=== PATIENT | male | born 1990 | race African-American/Black ===

== ENCOUNTER 2019-10-21 20:33 | Emergency (ER) | payer BC, OTHER ==
--- NOTE | 2019-10-21 20:46 | ER Document Report ---
ED Medical Screen (RME) - General Chief Complaint: Chest Pain Stated Complaint: LEFT ARM PAIN/CHEST PAIN Time Seen by Provider: 10/21/19 20:41 TRAVEL OUTSIDE OF THE [place] IN LAST 30 DAYS: No - HPI Notes: 10/21/19 20:45 Patient is a 29-year-old male with no significant past medical history who presents with nonspecific symptoms, but complaining of left lateral chest pain that he cannot describe how it feels. Patient states that he has some tingling sensation to his left arm as well. He did start having a cough today. Denies drug allergies. No fever. No history of CAD, PE, DVT. I have treated and performed a rapid initial assessment of this patient. A comprehensive ED assessment and evaluation of the patient, analysis of test results and completion of medical decision making process will be conducted by additional ED providers. PHYSICAL EXAMINATION: GENERAL: Well-appearing, well-nourished and in no acute distress. A&Ox4. Answers questions appropriately. LUNGS: Breath sounds clear to auscultation bilaterally and equal. No wheezes rales or rhonchi. HEART: Regular rate and rhythm without murmurs, rubs, gallops. Extremities: No cyanosis, clubbing, or edema b/l. Santy negative bilaterally. No lower extremity asymmetry. NEUROLOGICAL: Normal speech, normal gait. PSYCH: Normal mood, normal affect. Past Medical History - Immunizations Hx Diphtheria, Pertussis, Tetanus Vaccination: Yes
--- NOTE | 2019-10-21 21:20 | EKG REPORT ---
SEVERITY:- NORMAL ECG - SINUS RHYTHM : Confirmed by: Jairo Guerrero MD 21-Oct-2019 21:19:09
--- NOTE | 2019-10-21 21:24 | RADIOLOGY REPORT (SQ) ---
EXAM DESCRIPTION: XR CHEST 2 VIEWS COMPLETED DATE/TME: 10/21/2019 20:44 CLINICAL HISTORY: 29 years, Male, CP COMPARISON: None. NUMBER OF VIEWS: Two TECHNIQUE: Frontal and lateral radiograph are obtained LIMITATIONS: None. FINDINGS: Cardiac and mediastinal contours are normal in appearance. Lungs are clear. No pleural effusion or pneumothorax. IMPRESSION: No acute disease. copyright 2010 [employer]- All Rights Reserved
[2019-10-21 21:25] LABS: ABSOLUTE EOSINOPHILS # (AUTO) 0.2 10^3/uL (0.0-0.6); ABSOLUTE LYMPHOCYTES (AUTO) 2.2 10^3/uL (0.5-4.7); ABSOLUTE MONOCYTES (AUTO) 0.7 10^3/uL (0.1-1.4); ABSOLUTE NEUT (AUTO) 3.2 10^3/uL (1.7-8.2); BASOPHILS % (AUTO) 0.4 % (0-2); EOSINOPHILS % (AUTO) 3.3 % (0-6); HEMATOCRIT 46.1 % (37.9-51.0); HEMOGLOBIN 15.4 g/dL (13.5-17.0); LYMPHOCYTES % (AUTO) 35.3 % (13-45); MEAN CORPUSCULAR HEMOGLOBIN 27.2 pg (27.0-33.4); MEAN CORPUSCULAR HGB CONC 33.4 g/dL (32.0-36.0); MEAN CORPUSCULAR VOLUME 82 fl (80-97); MONOCYTES % (AUTO) 10.7 % (3-13); PLATELET COUNT 245 10^3/uL (150-450); RED BLOOD COUNT 5.66 10^6/uL (4.35-5.55); RED CELL DISTRIBUTION WIDTH 12.7 % (11.5-14.0); SEGMENTED NEUTROPHILS % (AUTO) 50.3 % (42-78); TOTAL CELLS COUNTED % (AUTO) 100 %; WHITE BLOOD COUNT 6.3 10^3/uL (4.0-10.5)
[2019-10-21 21:52] LABS: ALBUMIN 4.5 g/dL (3.5-5.0); ALKALINE PHOSPHATASE 57 U/L (38-126); ANION GAP 11 (5-19); ASPARTATE AMINO TRANSFERASE 25 U/L (17-59); BILIRUBIN,DIRECT 0.1 mg/dL (0.0-0.4); BILIRUBIN,TOTAL 1.4 mg/dL (0.2-1.3); BLOOD UREA NITROGEN 13 mg/dL (7-20); CALCIUM 9.8 mg/dL (8.4-10.2); CARBON DIOXIDE 28 mmol/L (22-30); CHLORIDE 102 mmol/L (98-107); GLUCOSE 122 mg/dL (75-110); TOTAL PROTEIN 7.8 g/dL (6.3-8.2)
[2019-10-22] MEDS ORDERED: ASPIRIN 81 MG TABLET, CHEWABLE PO ONE (02:37)
--- NOTE | 2019-10-22 02:39 | ER Document Report ---
ED Respiratory Problem - General Chief Complaint: Rib Pain Stated Complaint: LEFT ARM PAIN/CHEST PAIN Time Seen by Provider: 10/21/19 20:41 Primary Care Provider: [facility] [Provider Group] - Follow up as needed [facility] [Provider Group] - Follow up as needed [facility] [Provider Group] - Follow up as needed [facility] [Provider Group] - Follow up as needed Mode of Arrival: Ambulatory Information source: Patient Notes: 29-year-old male presented to ED for complaint nonspecific left lateral chest pain that started before Tequila and then got better and had some "tenseness to the left side of her chest with some tenseness to the left arm tonight. He states he has had some numbness and tingling in his left arm but he does work at housekeeping. He states he did have a mild cough yesterday no cardiac history no pulmonary history no PEs DVTs no surgeries and no past medical history. He is a former smoker but has not smoked in a long time. Does not drink alcohol or use any drugs. He has no risk factors for cardiac event. TRAVEL OUTSIDE OF THE [place] IN LAST 30 DAYS: No - HPI Patient complains to provider of: Chest pain Onset: Other - Intermittent since before Tequila again today Duration: Gone now Quality of pain: No pain - Tenseness Severity: Mild Pain Level: 2 Context: denies: Hx asthma, Hx CHF, Hx COPD, Smoker Chest pain/discomfort: Left Cough: Nonproductive Sputum amount: None Associated symptoms: Chest pain/discomfort, Cough Similar symptoms previously: Yes Recently seen / treated by doctor: No - Related Data Allergies/Adverse Reactions: Penicillins Allergy (Verified 10/21/19 20:50) Past Medical History - General Information source: Patient - Social History Smoking Status: Former Smoker Chew tobacco use (# tins/day): No Frequency of alcohol use: None Drug Abuse: None Lives with: Family Family History: Reviewed & Not Pertinent Patient has suicidal ideation: No Patient has homicidal ideation: No - Past Medical History Cardiac Medical History: Reports: None Pulmonary Medical History: Reports: None EENT Medical History: Reports: None Neurological Medical History: Reports: None Endocrine Medical History: Reports: None Renal/ Medical History: Reports: None Malignancy Medical History: Reports None GI Medical History: Reports: None Musculoskeletal Medical History: Reports None Skin Medical History: Reports None Psychiatric Medical History: Reports: None Traumatic Medical History: Reports: None Infectious Medical History: Reports: None Surgical Hx: Negative Past Surgical History: Reports: None - Immunizations Hx Diphtheria, Pertussis, Tetanus Vaccination: Yes Review of Systems - Review of Systems Constitutional: No symptoms reported EENT: No symptoms reported Cardiovascular: Chest pain - "Tense feeling "is unable to describe Respiratory: Cough Gastrointestinal: No symptoms reported Genitourinary: No symptoms reported Male Genitourinary: No symptoms reported Musculoskeletal: No symptoms reported Skin: No symptoms reported Hematologic/Lymphatic: No symptoms reported Neurological/Psychological: No symptoms reported -: Yes All other systems reviewed and negative Physical Exam - Vital signs Vitals: Temp Pulse Resp BP Pulse Ox 98.9 F 67 15 159/83 H 100 10/21/19 20:45 10/21/19 20:45 10/21/19 20:45 10/21/19 20:45 10/21/19 20:45 Interpretation: Normal - General General appearance: Appears well, Alert - HEENT Head: Normocephalic, Atraumatic Eyes: Normal Pupils: PERRL Ears: Normal External canal: Normal Tympanic membrane: Normal Sinus: Normal Nasal: Purulent discharge, Swelling Mouth/Lips: Normal Mucous membranes: Normal Pharynx: Post nasal drainage Neck: Normal - Respiratory Respiratory status: No respiratory distress Chest status: Nontender Breath sounds: Normal Chest palpation: Normal - Cardiovascular Rhythm: Regular Heart sounds: Normal auscultation Murmur: No - Abdominal Inspection: Normal Distension: No distension Bowel sounds: Normal Tenderness: Nontender Organomegaly: No organomegaly - Back Back: Normal, Nontender - Extremities General upper extremity: Normal inspection, Nontender, Normal color, Normal ROM, Normal temperature General lower extremity: Normal inspection, Nontender, Normal color, Normal ROM, Normal temperature, Normal weight bearing. No: Santy's sign - Neurological Neuro grossly intact: Yes Cognition: Normal Orientation: AAOx4 Elisa Coma Scale Eye Opening: Spontaneous [place] Coma Scale Verbal: Oriented Elisa Coma Scale Motor: Obeys Commands [place] Coma Scale Total: 15 Speech: Normal Motor strength normal: LUE, RUE, LLE, RLE Sensory: Normal - Psychological Associated symptoms: Normal affect, Normal mood - Skin Skin Temperature: Warm Skin Moisture: Dry Skin Color: Normal Course - Re-evaluation Re-evalutation: 10/22/19 02:42 Negative cardiac work-up. Patient does work in housekeeping. States he had a "tense feeling in his chest with some tingling to his arm. No cardiac history. Negative troponins x2, negative chest x-ray, negative EKG. Patient was given a written report of all of his x-ray EKG and lab work and instructed to follow-up with his primary doctor. Patient verbalized understanding and agreement treatment plan patient was discharged home. - Vital Signs Vital signs: Temp Pulse Resp BP Pulse Ox 98.8 F 68 17 138/76 H 100 10/22/19 03:05 10/22/19 03:05 10/22/19 03:05 10/22/19 03:05 10/22/19 03:05 - Laboratory Result Diagrams: 10/21/19 21:15 10/21/19 21:15 Laboratory results interpreted by me: 10/21/19 10/21/19 21:15 21:15 RBC 5.66 H Glucose 122 H Total Bilirubin 1.4 H - Diagnostic Test Radiology reviewed: Image reviewed, Reports reviewed Discharge - Discharge Clinical Impression: Chest pain Qualifiers: Chest pain type: unspecified Qualified Code(s): R07.9 - Chest pain, unspecified Condition: Stable Disposition: HOME, SELF-CARE Additional Instructions: CHEST PAIN OF UNCLEAR CAUSE: The exact cause of your chest pain isn't clear. Fortunately, there is no evidence of a dangerous medical condition. Further testing may be required to find the source of the pain. Most often, we find that this pain is coming from the chest wall -- the m uscles or rib joints in the chest. But chest pain can come from the lung and lung lining, the esophagus, the heart valves or heart lining, and even the stomach or gallbladder. Rest. Eat lightly until the pain is gone. We may prescribe medicine for pain and inflammation. You should call the physician immediately if the pain radiates to the shoulder, jaw or arms; if you start to run a fever or develop a cough; or if you develop shortness of breath, or other new or alarming symptoms. NORMAL EXAM AND WORKUP: At this time, your examination and workup show no significant abnormality. No significant abnormal physical findings were noted. All laboratory, EKG, and imaging (x-ray, CT scans, ultrasound) studies that were ordered show no significant abnormality. Although your examination and all studies that were ordered showed no significant abnormal finding, there are no examinations and no studies that are 100% accurate. There is always the possibility that some abnormality could exist and not be detected with physical examination or within the limits and capabilities of laboratory and other studies. You should return or follow up as you were instructed on your visit today for further evaluation if your symptoms do not resolve. CHEST WALL PAIN: Your chest pain may be coming from the chest wall. This is often caused by straining the muscles or joints in the chest during physical activity, direct trauma, coughing, or vigorous vomiting. Persons with arthritis are especially prone to this type of pain, due to inflammation of the cartilage joints near the breast bone. Occasionally, no cause can be found. Rest from strenuous physical activity. This kind of chest pain is usually made worse by movement of the chest. Depending on the symptoms, we may prescribe medicine for pain, muscle relaxation, and antiinflammatory effects. If the pain is new, and seems to be due to muscle strain, cold packs can help. Otherwise, apply gentle warmth to the painful area for 15 minutes every hour or two. You should call contact the doctor immediately if things change. Further evaluation is needed if you develop a fever or cough, if the nature of the pain changes, or if you become short of breath. ability to swallow fluids, fever, or worsening symptoms. ASPIRIN: Aspirin has been shown to have a beneficial effect on blood circulation by reducing the clotting effect of platelets in the blood. These beneficial effects can be achieved by taking just a single baby (81 mg) aspirin a day. It is recommended that any person over the age of forty take a single baby aspirin every day for heart and brain circulation, unless you are allergic to aspirin or have some significant bleeding disorder. It is strongly recommended that people who have proven cardiac or blood circulation disturbances should take a baby aspirin every day. Have discussed all your labs and x-ray with you. I have given you written report of all the labs and x-ray. Please take these with you to the follow-up work-up appointment with your primary doctor. All labs and x-ray are negative. Will discharge you home at this time please follow-up with your primary. FOLLOW-UP CARE: If you have been referred to a physician for follow-up care, call the ysicians office for an appointment as you were instructed or within the next two days. If you experience worsening or a significant change in your symptoms, notify the physician immediately or return to the Emergency Department at any time for re-evaluation. Forms: Elevated Blood Pressure, Return to Work Referrals: [facility] [Provider Group] - Follow up as needed [facility] [Provider Group] - Follow up as needed [facility] [Provider Group] - Follow up as needed [facility] [Provider Group] - Follow up as needed
[2019-10-22 03:23] VITALS: BP 138/76
== END 2019-10-22 03:23 | disposition home or self-care (01) ==
LOC: ER 10-22 02:00
DX: R07.9 Chest pain, unspecified (principal); R07.81 Pleurodynia; R20.2 Paresthesia of skin; Z88.0 Allergy status to penicillin
CPT/HCPCS: 36415; 71046; 80053; 84484; 85025; 93005; 93010; 99285

== ENCOUNTER → 2020-07-12 | Outpatient (CLI) | payer MEDICAID ==
--- NOTE | 2020-07-13 08:37 | EKG REPORT ---
SEVERITY:- NORMAL ECG - SINUS RHYTHM : Confirmed by: Marcia Teran MD 13-Jul-2020 08:36:31
== END ==
LOC: OD 15:01
PROVIDERS: ATTEND Nurse Practitioner Family
DX: R00.2 Palpitations (principal)
CPT/HCPCS: 93005; 93010

== ENCOUNTER → 2020-07-28 | Outpatient (CLI) | payer MEDICAID | LOC: SP 11:14 | PROVIDERS: ATTEND Nurse Practitioner Family | DX: R00.2 Palpitations (principal) | CPT/HCPCS: 93306 ==

== ENCOUNTER → 2020-09-08 | Outpatient (CLI) | payer MEDICAID | LOC: SP 10:21 | PROVIDERS: ATTEND Nurse Practitioner Family | DX: Z53.8 Procedure and treatment not carried out for other reasons (principal) ==